=== PATIENT | female | born 2000 | race Caucasian/White ===

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

== ENCOUNTER 2019-10-13 22:57 | Emergency (ER) | payer OTHER ==
[~2019-10-13] VITALS: Ht 172.7 cm; Wt 65.5 kg
[2019-10-13 23:07] VITALS: TEMP 99.6
[2019-10-13] MEDS ORDERED: ADDERALL XR25 MG PO (23:55)
[2019-10-13] MEDS ORDERED: LAMICTAL ODT50 MG PO (23:56)
[2019-10-14 00:17] LABS: BASO # 0.1 (0.0-0.2); BASO % 0.9 % (0.0-2.0); GRAN # 3.4 (1.4-6.5); HEMATOCRIT 38.6 % (35.0-45.0); HEMOGLOBIN 13.5 g/dl (12.0-15.0); LYMPH # 2.2 (1.2-3.4); LYMPH % 35.1 % (20.0-51.0); MEAN CELL VOLUME 89 fl (80.0-95.0); MEAN CORPUSCULAR HEMOGLOBIN 31 pg (26.0-32.0); MEAN CORPUSCULAR HGB CONC 35 g/dl (33.0-37.0); MEAN PLATELET VOLUME 9.8 fl (7.4-10.4); MONO # 0.7 (0.1-0.6); MONO % 10.7 % (1.7-9.3); PLATELET COUNT 233 K/mm3 (130-400); RED BLOOD COUNT 4.36 M/mm3 (4.10-5.30); REDCELL DISTRIBUTION WIDTH-CV 11.6 % (11.5-14.5)
[2019-10-14 00:20] LABS: ALANINE AMINOTRANSFERASE 29 U/L (4-34); ALBUMIN 4.1 gm/dL (3.5-5.0); ALKALINE PHOSPHATASE 67 U/L (50-136); ANION GAP 7 mmol/L (7-16); AST,SGOT 39 U/L (15-37); BILIRUBIN,TOTAL 0.5 mg/dL (0.0-1.0); BLOOD UREA NITROGEN 21 mg/dL (7-17); C-REACTIVE PROTEIN < 0.5 mg/dL (0.0-0.9); CALCIUM 9.1 mg/dL (8.4-10.2); CARBON DIOXIDE 27 mmol/L (22-30); CHLORIDE 103 mmol/L (98-107); CREATININE, serum 0.92 (0.52-1.25); GLUCOSE 99 mg/dL (74-106); LIPASE 102 U/L (23-300); POTASSIUM 3.7 mmol/L (3.4-5.0); SODIUM 138 mmol/L (137-145); TOTAL PROTEIN 6.7 gm/dL (6.4-8.2)
[2019-10-14 00:38] LABS: COLLECTION METHOD CLEAN CATCH
[2019-10-14 00:45] LABS: MUCOUS Present /lpf; PH 6 (5-8); SQUAMOUS EPITHELIAL 0-2 /hpf; URINE APPEARANCE Clear; URINE BACTERIA Rare /hpf; URINE BILIRUBIN Negative (NEGATIVE); URINE BLOOD Negative (NEGATIVE); URINE COLOR Yellow; URINE GLUCOSE Negative (NEGATIVE); URINE KETONE Negative (NEGATIVE); URINE LEUKOCYTE ESTERASE Negative (NEGATIVE); URINE NITRATE Negative (NEGATIVE); URINE PROTEIN(semi-quant) Negative (NEGATIVE); URINE RBC 0-2 /hpf; URINE UROBILINOGEN Negative (NEGATIVE)
[2019-10-14 01:38] VITALS: BP 112/70; PULSE 68
== END 2019-10-14 01:38 | disposition home or self-care (01) ==
LOC: COL.ER 22:57
PROVIDERS: Nurse Practitioner Primary Care
DX: R10.31 Right lower quadrant pain (principal); R10.32 Left lower quadrant pain
CPT/HCPCS: J1170; J2405; J7030

== ENCOUNTER → 2019-10-14 | Outpatient (CLI) | payer OTHER ==
[~2019-10-14] MED LIST changes: +ADDERALL XR25 MG PO; +LAMICTAL ODT50 MG PO
== END ==
LOC: COL.RAD 10:30
DX: R10.32 Left lower quadrant pain (principal); Z97.5 Presence of (intrauterine) contraceptive device

== ENCOUNTER 2020-01-05 20:33 | Emergency (ER) | payer OTHER ==
[~2020-01-05] VITALS: Ht 172.7 cm; Wt 61.8 kg
[2020-01-05 21:42] VITALS: TEMP 98.6
[2020-01-05] MEDS ORDERED: DESYREL 100MG100 MG PO (22:57)
[2020-01-05 23:00] LABS: BASO % 0.4 % (0.0-2.0); EOS # 0.2 (0.0-0.7); EOS % 1.4 % (0-4.0); GRAN # 6.9 (1.4-6.5); GRAN % 63.5 % (42.2-75.2); HEMATOCRIT 40.2 % (35.0-45.0); HEMOGLOBIN 13.9 g/dl (12.0-15.0); LYMPH % 27.8 % (20.0-51.0); MEAN CELL VOLUME 90 fl (80.0-95.0); MEAN CORPUSCULAR HEMOGLOBIN 31 pg (26.0-32.0); MEAN CORPUSCULAR HGB CONC 35 g/dl (33.0-37.0); MEAN PLATELET VOLUME 9.3 fl (7.4-10.4); MONO # 0.7 (0.1-0.6); MONO % 6.6 % (1.7-9.3); PLATELET COUNT 275 K/mm3 (130-400); RED BLOOD COUNT 4.45 M/mm3 (4.10-5.30)
[2020-01-05 23:10] LABS: ALBUMIN 4.5 gm/dL (3.5-5.0); BILIRUBIN,TOTAL 0.6 mg/dL (0.0-1.0); CALCIUM 9.3 mg/dL (8.4-10.2); CREATININE, serum 1.01 (0.52-1.25); POTASSIUM 3.6 mmol/L (3.4-5.0); TOTAL PROTEIN 7.3 gm/dL (6.4-8.2)
[2020-01-05 23:40] LABS: COLLECTION METHOD CLEAN CATCH
[2020-01-05 23:45] LABS: MUCOUS Present /lpf; PH 6 (5-8); URINE APPEARANCE Hazy; URINE BACTERIA Rare /hpf; URINE BILIRUBIN Negative (NEGATIVE); URINE BLOOD Negative (NEGATIVE); URINE COLOR Yellow; URINE GLUCOSE Negative (NEGATIVE); URINE KETONE Negative (NEGATIVE); URINE LEUKOCYTE ESTERASE Negative (NEGATIVE); URINE NITRATE Negative (NEGATIVE); URINE PROTEIN(semi-quant) Negative (NEGATIVE); URINE RBC 0-2 /hpf; URINE UROBILINOGEN Negative (NEGATIVE)
[2020-01-06 00:23] VITALS: BP 118/73; PULSE 76
== END 2020-01-06 00:32 | disposition home or self-care (01) ==
LOC: COL.ER 20:33
PROVIDERS: Emergency Medicine
DX: R53.81 Other malaise (principal); L02.411 Cutaneous abscess of right axilla; L03.111 Cellulitis of right axilla; F41.9 Anxiety disorder, unspecified; F90.9 Attention-deficit hyperactivity disorder, unspecified type; Z32.02 Encounter for pregnancy test, result negative

== ENCOUNTER 2020-02-12 19:29 | Emergency (ER) | payer OTHER ==
[~2020-02-12] VITALS: Ht 172.7 cm; Wt 66.4 kg
[~2020-02-12 19:29] MED LIST changes: +DESYREL 100MG100 MG PO
[2020-02-12 19:51] VITALS: TEMP 98.2
[2020-02-12 21:00] LABS: BASO % 0.5 % (0.0-2.0); EOS # 0.2 (0.0-0.7); EOS % 2.1 % (0-4.0); GRAN # 4.4 (1.4-6.5); GRAN % 53.3 % (42.2-75.2); HEMATOCRIT 41.3 % (35.0-45.0); HEMOGLOBIN 14.5 g/dl (12.0-15.0); LYMPH % 36.5 % (20.0-51.0); MEAN CELL VOLUME 90 fl (80.0-95.0); MEAN CORPUSCULAR HEMOGLOBIN 32 pg (26.0-32.0); MEAN CORPUSCULAR HGB CONC 35 g/dl (33.0-37.0); MEAN PLATELET VOLUME 9.4 fl (7.4-10.4); MONO # 0.6 (0.1-0.6); MONO % 7.4 % (1.7-9.3); PLATELET COUNT 259 K/mm3 (130-400); RED BLOOD COUNT 4.57 M/mm3 (4.10-5.30); REDCELL DISTRIBUTION WIDTH-CV 11.5 % (11.5-14.5)
[2020-02-12 21:09] LABS: ALANINE AMINOTRANSFERASE 19 U/L (4-34); ALBUMIN 4.3 gm/dL (3.5-5.0); ALKALINE PHOSPHATASE 66 U/L (50-136); ANION GAP 6 mmol/L (7-16); AST,SGOT 39 U/L (15-37); BILIRUBIN,TOTAL 0.5 mg/dL (0.0-1.0); BLOOD UREA NITROGEN 15 mg/dL (7-17); CALCIUM 9.3 mg/dL (8.4-10.2); CARBON DIOXIDE 28 mmol/L (22-30); CHLORIDE 104 mmol/L (98-107); CREATININE, serum 0.84 (0.52-1.25); GLUCOSE 94 mg/dL (74-106); LIPASE 149 U/L (23-300); POTASSIUM 3.8 mmol/L (3.4-5.0); SODIUM 137 mmol/L (137-145); TOTAL PROTEIN 7.2 gm/dL (6.4-8.2)
[2020-02-12 21:13] LABS: C-REACTIVE PROTEIN < 0.5 mg/dL (0.0-0.9)
[2020-02-12 21:22] LABS: ERYTHROCYTE SEDIMENTATION RATE 1 mm/hr (0-20)
[2020-02-12 22:20] LABS: COLLECTION METHOD CLEAN CATCH
[2020-02-12 22:33] LABS: MUCOUS Present /lpf; PH 6 (5-8); URINE APPEARANCE Clear; URINE BACTERIA None Seen /hpf; URINE BILIRUBIN Negative (NEGATIVE); URINE BLOOD Negative (NEGATIVE); URINE COLOR Yellow; URINE GLUCOSE Negative (NEGATIVE); URINE KETONE Negative (NEGATIVE); URINE LEUKOCYTE ESTERASE Trace (NEGATIVE); URINE NITRATE Negative (NEGATIVE); URINE PROTEIN(semi-quant) Negative (NEGATIVE); URINE UROBILINOGEN Negative (NEGATIVE)
[2020-02-12] MEDS ORDERED: NORCO 325 MG-51 TAB PO (23:08)
[2020-02-12 23:53] VITALS: BP 123/81; PULSE 85
== END 2020-02-12 23:53 | disposition home or self-care (01) ==
LOC: COL.ER 19:29
PROVIDERS: Emergency Medicine
DX: M25.50 Pain in unspecified joint (principal); R11.0 Nausea
CPT/HCPCS: J1100; J1170; J7030

== ENCOUNTER 2020-06-02 17:44 | Emergency (ER) | payer OTHER ==
[~2020-06-02] VITALS: Ht 172.7 cm; Wt 56.8 kg
[2020-06-02 17:52] VITALS: TEMP 97.5
[2020-06-02 18:48] LABS: COLLECTION METHOD CLEAN CATCH
[2020-06-02 18:57] LABS: BASO # 0.1 (0.0-0.2); BASO % 0.6 % (0.0-2.0); EOS # 0.1 (0.0-0.7); EOS % 1.7 % (0-4.0); GRAN % 46.9 % (42.2-75.2); HEMATOCRIT 41.7 % (37.0-47.0); HEMOGLOBIN 14.8 g/dl (12.5-16.0); LYMPH # 3.6 (1.2-3.4); LYMPH % 42.2 % (20.0-51.0); MEAN CELL VOLUME 88 fl (80.0-100.0); MEAN CORPUSCULAR HEMOGLOBIN 31 pg (27.0-31.0); MEAN CORPUSCULAR HGB CONC 36 g/dl (33.0-37.0); MEAN PLATELET VOLUME 9.5 fl (7.4-10.4); MONO # 0.7 (0.1-0.6); MONO % 8.4 % (1.7-9.3); PLATELET COUNT 258 K/mm3 (130-400); RED BLOOD COUNT 4.74 M/mm3 (4.10-5.30); REDCELL DISTRIBUTION WIDTH-CV 11.3 % (11.5-14.5)
[2020-06-02 19:01] LABS: MUCOUS Present /lpf; PH 6 (5-8); SQUAMOUS EPITHELIAL 0-2 /hpf; URINE APPEARANCE Clear; URINE BACTERIA Rare /hpf; URINE BILIRUBIN Negative (NEGATIVE); URINE BLOOD Negative (NEGATIVE); URINE COLOR Yellow; URINE GLUCOSE Negative (NEGATIVE); URINE KETONE Negative (NEGATIVE); URINE LEUKOCYTE ESTERASE Negative (NEGATIVE); URINE NITRATE Negative (NEGATIVE); URINE PROTEIN(semi-quant) Negative (NEGATIVE); URINE RBC 0-2 /hpf; URINE UROBILINOGEN Negative (NEGATIVE)
[2020-06-02 19:09] LABS: ALBUMIN 4.5 gm/dL (3.5-5.0); CALCIUM 9.7 mg/dL (8.4-10.2); CREATININE, serum 0.8 (0.52-1.25); POTASSIUM 3.3 mmol/L (3.4-5.0); TOTAL PROTEIN 7.2 gm/dL (6.4-8.2)
[2020-06-02 19:23] LABS: MONOSCREEN NEGATIVE
[2020-06-02 20:25] VITALS: BP 106/72; PULSE 91
== END 2020-06-02 20:25 | disposition home or self-care (01) ==
LOC: COL.ER 17:44
PROVIDERS: Nurse Practitioner Primary Care
DX: R53.81 Other malaise (principal); R53.83 Other fatigue; R10.9 Unspecified abdominal pain; R11.0 Nausea; H53.8 Other visual disturbances; R06.02 Shortness of breath; Z20.822 Contact with and (suspected) exposure to COVID-19
CPT/HCPCS: Q9967